=== PATIENT | female | born 1940 | race Two or more races ===

== ENCOUNTER 2018-07-13 15:08 | Emergency (ER) | payer OTHER ==
[~2018-07-13] VITALS: Ht 160 cm; Wt 26.3 kg
[2018-07-13] MEDS ORDERED: ZANTAC 7575 MG (16:05)
[2018-07-13] MEDS ORDERED: SYNTHROID50 MCG (16:05)
== END 2018-07-13 21:45 | disposition home or self-care (01) ==
LOC: ER 15:08
DX: K52.89 Other specified noninfective gastroenteritis and colitis (principal)